=== PATIENT | male | born 1980 | race Asian ===

== ENCOUNTER 2019-09-19 07:51 | Emergency (ER) | payer MEDICAID ==
[~2019-09-19] VITALS: Ht 167.6 cm; Wt 59.1 kg
[2019-09-19] MEDS ORDERED: GEMF600T5 PO (08:00)
[2019-09-19] MEDS ORDERED: ATEN-188 PO (08:00)
[2019-09-19] MEDS ORDERED: KETOROLAC TROMETHAMINE 60 MG/2 ML VIAL IM ONE (08:30)
[2019-09-19] MEDS ORDERED: HYDROCODONE/ACETAMINOPHEN 5-325 MG TABLET PO ONE (08:30)
[2019-09-19 09:05] VITALS: BP 134/72
== END 2019-09-19 09:35 | disposition home or self-care (01) ==
LOC: EMS 08:07
DX: S86.812A Strain of other muscle(s) and tendon(s) at lower leg level, left leg, initial encounter (principal); F17.210 Nicotine dependence, cigarettes, uncomplicated; E78.00 Pure hypercholesterolemia, unspecified; I10 Essential (primary) hypertension; W01.0XXA Fall on same level from slipping, tripping and stumbling without subsequent striking against object, initial encounter; Y93.89 Activity, other specified; Y92.89 Other specified places as the place of occurrence of the external cause; Y99.8 Other external cause status
CPT/HCPCS: 29505; 73562; 96372; 99283; 99406; J1885